=== PATIENT | female | born 1995 | race Two or more races ===

== ENCOUNTER 2019-07-07 16:23 | Emergency (ER) | payer SELFPAY ==
[~2019-07-07] VITALS: Ht 162.6 cm; Wt 100.0 kg
[2019-07-07 16:25] VITALS: BP 130/76
== END 2019-07-07 16:44 | disposition left against medical advice (07) ==
LOC: ER 16:23
DX: R42 Dizziness and giddiness (principal); Z53.21 Procedure and treatment not carried out due to patient leaving prior to being seen by health care provider